=== PATIENT | female | born 1970 | race Two or more races ===

== ENCOUNTER 2021-02-05 20:32 | Emergency (ER) | payer OTHER, SELFPAY ==
[~2021-02-05] VITALS: Ht 154.9 cm; Wt 81.8 kg
[2021-02-05 21:12] LABS: BASOPHILS % (AUTO) 1 % (0-1); EOSINOPHILS % (AUTO) 0 % (1-7); LYMPHOCYTES % (AUTO) 12 % (22-44); MEAN CORPUSCULAR HEMOGLOBIN 23.8 pg (27.0-34.8); MEAN CORPUSCULAR HGB CONC 32.6 g/dL (32.4-35.8); MEAN PLATELET VOLUME 7.4 fL (7.4-10.4); MONOCYTES % (AUTO) 6 % (2-9); NEUTROPHILS % (AUTO) 82 % (42-75); PLATELET COUNT 223 x10^3/uL (130-400); RED BLOOD COUNT 6.27 x10^6/uL (3.82-5.3)
[2021-02-05] MEDS ORDERED: BACITRACIN ZINC OINT 500U/GM, 0.9 GM ONE (21:15)
[2021-02-05] MEDS ORDERED: DIPH,PERTUSS(ACELL),TET VAC/PF 0.5 ML IM-VACC ONE ×2 (21:16→21:30)
[2021-02-05 21:24] LABS: ALANINE AMINOTRANSFERASE 57 U/L (12-78); ALBUMIN 4.1 g/dL (3.4-5.0); ANION GAP 6 mmol/L (5-15); CALCIUM 9.9 mg/dL (8.5-10.1); CHLORIDE 111 mmol/L (98-107); CREATININE 1.06 mg/dL (0.55-1.02); SALICYLATE LEVEL 4.3 mg/dL (2.8-20.0)
[2021-02-05 21:34] LABS: ALKALINE PHOSPHATASE 94 U/L (45-117); BILIRUBIN,TOTAL 0.3 mg/dL (0.2-1.0); TOTAL PROTEIN 7.9 g/dL (6.4-8.2)
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
--- NOTE | 2021-02-05 21:42 | NUR ---
patient changed into gown. patients room secured and VS taken on patient. belongings secured. family at the bedside. patient sitting comfortably in room. no other current needs at this time
[2021-02-05 22:09] VITALS: BP 127/88
--- NOTE | 2021-02-05 22:52 | NUR ---
patient laying comfortably in bed. Patient has no other needs at this current moment
--- NOTE | 2021-02-05 22:58 | NUR ---
Valerio BROWN cleared patient to leave ER. Patient denies SI/HI and states that if she feels like she needs any help, she will come back to the ER for assistance
== END 2021-02-05 23:31 | disposition home or self-care (01) ==
LOC: ED 21:00
DX: F32.0 Major depressive disorder, single episode, mild (principal); M79.632 Pain in left forearm; I10 Essential (primary) hypertension; F17.210 Nicotine dependence, cigarettes, uncomplicated
CPT/HCPCS: 36415; 80053; 80299; 80320; 80329; 84443; 85025; 90471; 90715; 99406; G0480